=== PATIENT | female | born 2005 | race Caucasian/White ===

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

== ENCOUNTER 2023-02-12 09:06 | Emergency (ER) | payer OTHER ==
[~2023-02-12] VITALS: Ht 170.2 cm; Wt 78.0 kg
--- OUTSIDE RECORDS SUMMARY | ~2023-02-12 | XMS | Continuity of Care Document ---
Demographics + + + | Address | [facility] [address] | | | [place] [address] | + + + | Preferred Language | Unknown | + + + | Marital Status | Never | + + + | Mu-Ism Affiliation | Unknown | + + + | Race | White | + + + | Ethnic Group | Not or | + + + Author + + + | Author | [facility] | + + + | Organization | [facility] | + + + | Address | [address] [facility] | | | [place] [address] | + + + | Phone | | + + + Care Team Providers + + + + | Care Digital Computer Systems Analyst Name | Role | Phone | + + + + Unavailable | Unavailable | + + + + Unavailable | Unavailable | + + + + Unavailable | Unavailable | + + + + Allergies No information. Encounters No information. Functional Status No information. Immunizations No information. Medications + + + + | date | description | facility | + + + + | 2019-09-06 00:00 | 1 ML medroxyprogesterone | [facility] | | | acetate 150 MG/ML Injection | | | | [Depo-Provera] | | + + + + | 2019-09-06 00:00 | 1 ML medroxyprogesterone | [facility] | | | acetate 150 MG/ML Injection | | | | [Depo-Provera] | | + + + + | 2022-01-19 00:00 | 1 ml medroxyprogesterone | [facility] | | | acetate 150 mg/ml prefilled | Cardiopulmonary | | | syringe | | + + + + | 2022-01-19 00:00 | 1 ml depo-provera 150 | [facility] | | | mg/ml prefilled syringe | Cardiopulmonary | + + + + | 2019-09-06 00:00 | Multi Vitamin Oral Tablet | [facility] | | | | | + + + + | 2019-09-06 00:00 | Multi Vitamin Oral Tablet | [facility] | | | | | + + + + | 2020-12-10 00:00 | ProAir HFA 108 (90 Base) | [facility] | | | MCG/ACT Inhalation Aerosol | | | | Solution | | + + + + | 2020-12-10 00:00 | ProAir HFA 108 (90 Base) | [facility] | | | MCG/ACT Inhalation Aerosol | | | | Solution | | + + + + | 2019-11-02 00:00 | {21 (ethinyl estradiol | [facility] | | | 0.035 MG / norgestimate | | | | 0.25 MG Oral Tablet) / 7 | | | | (inert ingredients 1 MG | | | | Oral Tablet) } Pack | | | | [[place]-Linyah 28 Day] | | + + + + | 2019-11-02 00:00 | {21 (ethinyl estradiol | [facility] | | | 0.035 MG / norgestimate | | | | 0.25 MG Oral Tablet) / 7 | | | | (inert ingredients 1 MG | | | | Oral Tablet) } Pack | | | | [[place]-Liny[facility] 28 Day] | | + + + + | 2019-12-06 00:00 | {21 (ethinyl estradiol | [facility] | | | 0.035 MG / norgestimate | | | | 0.25 MG Oral Tablet) / 7 | | | | (inert ingredients 1 MG | | | | Oral Tablet) } Pack | | | | [[place]-[facility]iny[facility] 28 Day] | | + + + + | 2019-12-06 00:00 | {21 (ethinyl estradiol | [facility] | | | 0.035 MG / norgestimate | | | | 0.25 MG Oral Tablet) / 7 | | | | (inert ingredients 1 MG | | | | Oral Tablet) } Pack | | | | [[place]-[facility] 28 Day] | | + + + + | 2019-11-02 00:00 | [place]-Linyah 0.25-35 MG-MCG | [facility] | | | Oral Tablet | | + + + + | 2019-11-02 00:00 | [place]-Linyah 0.25-35 MG-MCG | [facility] | | | Oral Tablet | | + + + + | 2019-12-06 00:00 | [place]-Linyah 0.25-35 MG-MCG | [facility] | | | Oral Tablet | | + + + + | 2019-12-06 00:00 | [place]-Linyah 0.25-35 MG-MCG | [facility] | | | Oral Tablet | | + + + + | 2022-12-19 00:00 | Propranolol HCl 10 MG Oral | [facility] | | | Tablet | | + + + + | 2022-12-19 00:00 | Propranolol HCl 10 MG Oral | [facility] | | | Tablet | | + + + + | 2022-11-25 00:00 | Propranolol HCl 20 MG Oral | [facility] | | | Tablet | | + + + + | 2022-11-25 00:00 | Propranolol HCl 20 MG Oral | [facility] | | | Tablet | | + + + + | 2019-07-04 00:00 | ibuprofen 400 mg oral | [facility] | | | tablet | Cardiopulmonary | + + + + | 2020-12-10 00:00 | [id number] 200 actuat | [facility] | | | albuterol 0.09 mg/actuat | Cardiopulmonary | | | metered dose inhaler | | + + + + | 2019-11-07 00:00 | fluoxetine 20 MG Oral | [facility] | | | Tablet | | + + + + | 2019-11-07 00:00 | fluoxetine 20 MG Oral | [facility] | | | Tablet | | + + + + | 2019-11-16 00:00 | sertraline 25 MG Oral | [facility] | | | Tablet | | + + + + | 2019-11-16 00:00 | sertraline 25 MG Oral | [facility] | | | Tablet | | + + + + | 2019-11-07 00:00 | FLUoxetine HCl 20 MG Oral | [facility] | | | Tablet | | + + + + | 2019-11-07 00:00 | FLUoxetine HCl 20 MG Oral | [facility] | | | Tablet | | + + + + | 2019-11-16 00:00 | Sertraline HCl 25 MG Oral | [facility] | | | Tablet | | + + + + | 2019-11-16 00:00 | Sertraline HCl 25 MG Oral | [facility] | | | Tablet | | + + + + | 2020-09-05 00:00 | Effexor XR 37.5 MG Oral | [facility] | | | Capsule Extended Release 24 | | | | Hour | | + + + + | 2020-09-05 00:00 | Effexor XR 37.5 MG Oral | [facility] | | | Capsule Extended Release 24 | | | | Hour | | + + + + | 2021-10-23 00:00 | Effexor XR 37.5 MG Oral | [facility] | | | Capsule Extended Release 24 | | | | Hour | | + + + + | 2021-10-23 00:00 | Effexor XR 37.5 MG Oral | [facility] | | | Capsule Extended Release 24 | | | | Hour | | + + + + | 2021-12-18 00:00 | duloxetine 30 MG Delayed | [facility] | | | Release Oral Capsule | | | | [Cymbalta] | | + + + + | 2021-12-18 00:00 | duloxetine 30 MG Delayed | [facility] | | | Release Oral Capsule | | | | [Cymbalta] | | + + + + | 2022-01-20 00:00 | duloxetine 30 MG Delayed | [facility] | | | Release Oral Capsule | | | | [Cymbalta] | | + + + + | 2022-01-20 00:00 | duloxetine 30 MG Delayed | [facility] | | | Release Oral Capsule | | | | [Cymbalta] | | + + + + | 2019-09-06 00:00 | Depo-Provera 150 MG/ML | [facility] | | | Intramuscular Suspension | | + + + + | 2019-09-06 00:00 | Depo-Provera 150 MG/ML | [facility] | | | Intramuscular Suspension | | + + + + | 2020-09-05 00:00 | 24 HR venlafaxine 37.5 MG | [facility] | | | Extended Release Oral | | | | Capsule [Effexor] | | + + + + | 2020-09-05 00:00 | 24 HR venlafaxine 37.5 MG | [facility] | | | Extended Release Oral | | | | Capsule [Effexor] | | + + + + | 2021-10-23 00:00 | 24 HR venlafaxine 37.5 MG | [facility] | | | Extended Release Oral | | | | Capsule [Effexor] | | + + + + | 2021-10-23 00:00 | 24 HR venlafaxine 37.5 MG | [facility] | | | Extended Release Oral | | | | Capsule [Effexor] | | + + + + | 2020-12-10 00:00 | [id number] 200 ACTUAT | [facility] | | | albuterol 0.09 MG/ACTUAT | | | | Metered Dose Inhaler | | | | [ProAir] | | + + + + | 2020-12-10 00:00 | [id number] 200 ACTUAT | [facility] | | | albuterol 0.09 MG/ACTUAT | | | | Metered Dose Inhaler | | | | [ProAir] | | + + + + | 2019-09-06 00:00 | {21 (ethinyl estradiol | [facility] | | | 0.035 MG / norgestimate | | | | 0.25 MG Oral Tablet) / 7 | | | | (inert ingredients 1 MG | | | | Oral Tablet) } Pack | | | | [Sprintec 28 Day] | | + + + + | 2019-09-06 00:00 | {21 (ethinyl estradiol | [facility] | | | 0.035 MG / norgestimate | | | | 0.25 MG Oral Tablet) / 7 | | | | (inert ingredients 1 MG | | | | Oral Tablet) } Pack | | | | [Sprintec 28 Day] | | + + + + | 2019-10-04 00:00 | {21 (ethinyl estradiol | [facility] | | | 0.035 MG / norgestimate | | | | 0.25 MG Oral Tablet) / 7 | | | | (inert ingredients 1 MG | | | | Oral Tablet) } Pack | | | | [Sprintec 28 Day] | | + + + + | 2019-10-04 00:00 | {21 (ethinyl estradiol | [facility] | | | 0.035 MG / norgestimate | | | | 0.25 MG Oral Tablet) / 7 | | | | (inert ingredients 1 MG | | | | Oral Tablet) } Pack | | | | [Sprintec 28 Day] | | + + + + | 2019-10-05 00:00 | {21 (ethinyl estradiol | [facility] | | | 0.035 MG / norgestimate | | | | 0.25 MG Oral Tablet) / 7 | | | | (inert ingredients 1 MG | | | | Oral Tablet) } Pack | | | | [Sprintec 28 Day] | | + + + + | 2019-10-05 00:00 | {21 (ethinyl estradiol | [facility] | | | 0.035 MG / norgestimate | | | | 0.25 MG Oral Tablet) / 7 | | | | (inert ingredients 1 MG | | | | Oral Tablet) } Pack | | | | [Sprintec 28 Day] | | + + + + | 2019-09-06 00:00 | Sprintec 28 0.25-35 MG-MCG | [facility] | | | Oral Tablet | | + + + + | 2019-09-06 00:00 | Sprintec 28 0.25-35 MG-MCG | [facility] | | | Oral Tablet | | + + + + | 2019-10-04 00:00 | Sprintec 28 0.25-35 MG-MCG | [facility] | | | Oral Tablet | | + + + + | 2019-10-04 00:00 | Sprintec 28 0.25-35 MG-MCG | [facility] | | | Oral Tablet | | + + + + | 2019-10-05 00:00 | Sprintec 28 0.25-35 MG-MCG | [facility] | | | Oral Tablet | | + + + + | 2019-10-05 00:00 | Sprintec 28 0.25-35 MG-MCG | [facility] | | | Oral Tablet | | + + + + | 2022-12-19 00:00 | propranolol hydrochloride | [facility] | | | 10 MG Oral Tablet | | + + + + | 2022-12-19 00:00 | propranolol hydrochloride | [facility] | | | 10 MG Oral Tablet | | + + + + | 2022-11-25 00:00 | propranolol hydrochloride | [facility] | | | 20 MG Oral Tablet | | + + + + | 2022-11-25 00:00 | propranolol hydrochloride | [facility] | | | 20 MG Oral Tablet | | + + + + | 2021-12-18 00:00 | Cymbalta 30 MG Oral | [facility] | | | Capsule Delayed Release | | | | Particles | | + + + + | 2021-12-18 00:00 | Cymbalta 30 MG Oral | [facility] | | | Capsule Delayed Release | | | | Particles | | + + + + | 2022-01-20 00:00 | Cymbalta 30 MG Oral | [facility] | | | Capsule Delayed Release | | | | Particles | | + + + + | 2022-01-20 00:00 | Cymbalta 30 MG Oral | [facility] | | | Capsule Delayed Release | | | | Particles | | + + + + | 2019-09-06 00:00 | Calcium Oral Tablet | [facility] | | | | | + + + + | 2019-09-06 00:00 | Calcium Oral Tablet | [facility] | | | | | + + + + Problems + + + + | date | description | facility | + + + + | 2020-09-05 00:00 | Generalized anxiety | [facility] | | | disorder (disorder) | | + + + + | 2020-09-05 00:00 | Generalized anxiety | [facility] | | | disorder (disorder) | | + + + + | 2020-09-05 00:00 | Scoliosis deformity of | [facility] | | | spine (disorder) | | + + + + | 2020-09-05 00:00 | Scoliosis deformity of | [facility] | | | spine (disorder) | | + + + + | 2020-09-05 00:00 | ANXIETY GENERALIZED | [facility] | | | | | + + + + | 2020-09-05 00:00 | ANXIETY GENERALIZED | [facility]. | | | | | + + + + | 2020-09-05 00:00 | Scoliosis | [facility] | | | | | + + + + | 2020-09-05 00:00 | Scoliosis | [facility] | | | | | + + + + | 2020-09-05 00:00 | Generalized Anxiety | [facility] | | | Disorder | | + + + + | 2020-09-05 00:00 | [facility] An[facility] | [facility] | | | Disorder | | + + + + Procedures + + + + | date | description | facility | + + + + | 2022-11-25 00:00 | Controlling BP; Most | [facility]. | | | recent Systolic BP | | | | 130-139mm Hg | | + + + + | 2022-11-25 00:00 | Controlling BP; Most | [facility] | | | recent Systolic BP | | | | 130-139mm Hg | | + + + + | 2022-11-25 00:00 | Controlling BP; Most | [facility] | | | recent Diastolic BP btwn | | | | 80-89 mm Hg | | + + + + | 2022-11-25 00:00 | Controlling BP; Most | [facility] | | | recent Diastolic BP btwn | | | | 80-89 mm Hg | | + + + + | 2022-11-25 00:00 | ECG; Routine at Least 12 | [facility] | | | Leads; Interpretation & | | | | Report | | + + + + | 2022-11-25 00:00 | ECG; Routine at Least 12 | [facility] | | | Leads; Interpretation & | | | | Report | | + + + + | 2021-11-05 00:00 | CARDIAC 48 HOUR HOLTER | [facility] | | | MONITOR W SCAN | Cardiopulmonary | + + + + | 2022-11-25 00:00 | Annual Depression | [facility] | | | Screening; 15 Minutes | | + + + + | 2022-11-25 00:00 | Annual Depression | [facility] | | | Screening; 15 Minutes | | + + + + Results/Labs +--------+--------+ + +---------+--------+ + | test | date | author | facility | value | unit | | | | | | | | | interpreta | | | | | | | | tion | +--------+--------+ + +---------+--------+ + + + | Result panel 1 | + + + + + + +---------+ + + | (unknown) | (no date) | (unknown) | [facility] | (no | (units | (unknown) | | | | | [facility] | value) | unknown) | | | | | | [facility] | | | | | | | | [facility] | | | | + + + + +---------+ + + + + | Result panel 2 | + + + + + + +---------+ + + | (unknown) | (no date) | (unknown) | [facility] | (no | (units | (unknown) | | | | | [facility] | value) | unknown) | | | | | | [facility] | | | | | | | | [facility] | | | | + + + + +---------+ + + + + | Result panel 3 | + + + + + + +---------+ + + | (unknown) | (no date) | (unknown) | [facility] | (no | (units | (unknown) | | | | | [facility] | value) | unknown) | | | | | | [facility] | | | | | | | | [facility] | | | | + + + + +---------+ + + + + | Result panel 4 | + + + + + + +---------+ + + | (unknown) | (no date) | (unknown) | [facility] | (no | (units | (unknown) | | | | | [facility] | value) | unknown) | | | | | | [facility] | | | | | | | | [facility] | | | | + + + + +---------+ + + + + | Result panel 5 | + + + + + + +---------+ + + | (unknown) | (no date) | (unknown) | [facility] | (no | (units | (unknown) | | | | | [facility] | value) | unknown) | | | | | | [facility] | | | | | | | | [facility] | | | | + + + + +---------+ + + + + | Result panel 6 | + + + + + + +---------+ + + | (unknown) | (no date) | (unknown) | [facility] | (no | (units | (unknown) | | | | | [facility] | value) | unknown) | | | | | | [facility] | | | | | | | | [facility] | | | | + + + + +---------+ + + + + | Result panel 7 | + + + + + + +---------+ + + | (unknown) | (no date) | (unknown) | [facility] | (no | (units | (unknown) | | | | | [facility] | value) | unknown) | | | | | | [facility] | | | | | | | | [facility] | | | | + + + + +---------+ + + + + | Result panel 8 | + + + + + + +---------+ + + | (unknown) | (no date) | (unknown) | [facility] | (no | (units | (unknown) | | | | | [facility] | value) | unknown) | | | | | | [facility] | | | | | | | | [facility] | | | | + + + + +---------+ + + + + | Result panel 9 | + + + + + + +---------+ + + | (unknown) | (no date) | (unknown) | [facility] | (no | (units | (unknown) | | | | | [facility] | value) | unknown) | | | | | | [facility] | | | | | | | | [facility] | | | | + + + + +---------+ + + + + | Result panel 10 | + + + + + + +---------+ + + | (unknown) | (no date) | (unknown) | [facility] | (no | (units | (unknown) | | | | | [facility] | value) | unknown) | | | | | | [facility], | | | | | | | | [facility] | | | | + + + + +---------+ + + + + | Result panel 11 | + + + + + + +---------+ + + | (unknown) | (no date) | (unknown) | [facility] | (no | (units | (unknown) | | | | | [facility] | value) | unknown) | | | | | | [facility], | | | | | | | | [facility] | | | | + + + + +---------+ + + + + | Result panel 12 | + + + + + + +---------+ + + | (unknown) | (no date) | (unknown) | [facility] | (no | (units | (unknown) | | | | | [facility] | value) | unknown) | | | | | | [facility], | | | | | | | | [facility] | | | | + + + + +---------+ + + + + | Result panel 13 | + + + + + + +---------+ + + | (unknown) | (no date) | (unknown) | [facility] | (no | (units | (unknown) | | | | | [facility] | value) | unknown) | | | | | | [facility], | | | | | | | | [facility] | | | | + + + + +---------+ + + + + | Result panel 14 | + + + + + + +---------+ + + | (unknown) | (no date) | (unknown) | [facility] | (no | (units | (unknown) | | | | | [facility] | value) | unknown) | | | | | | [facility], | | | | | | | | [facility] | | | | + + + + +---------+ + + + + | Result panel 15 | + + + + + + +---------+ + + | (unknown) | (no date) | (unknown) | [facility] | (no | (units | (unknown) | | | | | [facility] | value) | unknown) | | | | | | [facility], | | | | | | | | [facility] | | | | + + + + +---------+ + + + + | Result panel 16 | + + + + + + +---------+ + + | (unknown) | (no date) | (unknown) | [facility] | (no | (units | (unknown) | | | | | [facility] | value) | unknown) | | | | | | [facility], | | | | | | | | [facility] | | | | + + + + +---------+ + + + + | Result panel 17 | + + + + + + +---------+ + + | (unknown) | (no date) | (unknown) | [facility] | (no | (units | (unknown) | | | | | [facility] | value) | unknown) | | | | | | [facility], | | | | | | | | [facility] | | | | + + + + +---------+ + + + + | Result panel 18 | + + + + + + +---------+ + + | (unknown) | (no date) | (unknown) | [facility] | (no | (units | (unknown) | | | | | [facility] | value) | unknown) | | | | | | [facility], | | | | | | | | [facility] | | | | + + + + +---------+ + + + + | Result panel 19 | + + + + + + +---------+ + + | (unknown) | (no date) | (unknown) | [facility] | (no | (units | (unknown) | | | | | [facility] | value) | unknown) | | | | | | [facility], | | | | | | | | [facility] | | | | + + + + +---------+ + + + + | Result panel 20 | + + + + + + +---------+ + + | (unknown) | (no date) | (unknown) | [facility] | (no | (units | (unknown) | | | | | [facility] | value) | unknown) | | | | | | [facility], | | | | | | | | [facility] | | | | + + + + +---------+ + + + + | Result panel 21 | + + + + + + +---------+ + + | (unknown) | (no date) | (unknown) | [facility] | (no | (units | (unknown) | | | | | [facility] | value) | unknown) | | | | | | [facility], | | | | | | | | [facility] | | | | + + + + +---------+ + + + + | Result panel 22 | + + + + + + +---------+ + + | (unknown) | (no date) | (unknown) | [facility] | (no | (units | (unknown) | | | | | [facility] | value) | unknown) | | | | | | [facility], | | | | | | | | [facility] | | | | + + + + +---------+ + + + + | Result panel 23 | + + + + + + +---------+ + + | (unknown) | (no date) | (unknown) | [facility] | (no | (units | (unknown) | | | | | [facility] | value) | unknown) | | | | | | [facility], | | | | | | | | [facility] | | | | + + + + +---------+ + + + + | Result panel 24 | + + + + + + +---------+ + + | (unknown) | (no date) | (unknown) | [facility] | (no | (units | (unknown) | | | | | [facility]ICAL | value) | unknown) | | | | | | [facility], | | | | | | | | [facility] | | | | + + + + +---------+ + + + + | Result panel 25 | + + + + + + +---------+ + + | (unknown) | (no date) | (unknown) | [facility] | (no | (units | (unknown) | | | | | [facility] | value) | unknown) | | | | | | [facility], | | | | | | | | [facility] | | | | + + + + +---------+ + + + + | Result panel 26 | + + + + + + +---------+ + + | (unknown) | (no date) | (unknown) | [facility] | (no | (units | (unknown) | | | | | [facility] | value) | unknown) | | | | | | [facility], | | | | | | | | [facility] | | | | + + + + +---------+ + + + + | Result panel 27 | + + + + + + +---------+ + + | (unknown) | (no date) | (unknown) | [facility] | (no | (units | (unknown) | | | | | [facility] | value) | unknown) | | | | | | [facility], | | | | | | | | [facility] | | | | + + + + +---------+ + + + + | Result panel 28 | + + + + + + +---------+ + + | (unknown) | (no date) | (unknown) | [facility] | (no | (units | (unknown) | | | | | MEDICAL | value) | unknown) | | | | | | [facility], | | | | | | | | [facility] | | | | + + + + +---------+ + + + + | Result panel 29 | + + + + + + +---------+ + + | (unknown) | (no date) | (unknown) | [facility] | (no | (units | (unknown) | | | | | [facility] | value) | unknown) | | | | | | [facility], | | | | | | | | [facility] | | | | + + + + +---------+ + + + + | Result panel 30 | + + + + + + +---------+ + + | (unknown) | (no date) | (unknown) | [facility] | (no | (units | (unknown) | | | | | MEDICAL | value) | unknown) | | | | | | GROUP, | | | | | | | | [facility] | | | | + + + + +---------+ + + + + | Result panel 31 | + + + + + + +---------+ + + | (unknown) | (no date) | (unknown) | [facility] | (no | (units | (unknown) | | | | | MEDICAL | value) | unknown) | | | | | | GROUP, | | | | | | | | [facility] | | | | + + + + +---------+ + + + + | Result panel 32 | + + + + + + +---------+ + + | (unknown) | (no date) | (unknown) | [facility] | (no | (units | (unknown) | | | | | MEDICAL | value) | unknown) | | | | | | GROUP, | | | | | | | | [facility] | | | | + + + + +---------+ + + + + | Result panel 33 | + + + + + + +---------+ + + | (unknown) | (no date) | (unknown) | [facility] | (no | (units | (unknown) | | | | | MEDICAL | value) | unknown) | | | | | | GROUP, | | | | | | | | [facility] | | | | + + + + +---------+ + + + + | Result panel 34 | + + + + + + +---------+ + + | (unknown) | (no date) | (unknown) | [facility] | (no | (units | (unknown) | | | | | MEDICAL | value) | unknown) | | | | | | [facility], | | | | | | | | [facility] | | | | + + + + +---------+ + + + + | Result panel 35 | + + + + + + +---------+ + + | (unknown) | (no date) | (unknown) | [facility] | (no | (units | (unknown) | | | | | MEDICAL | value) | unknown) | | | | | | [facility], | | | | | | | | [facility] | | | | + + + + +---------+ + + + + | Result panel 36 | + + + + + + +---------+ + + | (unknown) | (no date) | (unknown) | [facility] | (no | (units | (unknown) | | | | | MEDICAL | value) | unknown) | | | | | | GROUP, | | | | | | | | [facility] | | | | + + + + +---------+ + + + + | Result panel 37 | + + + + + + +---------+ + + | (unknown) | (no date) | (unknown) | [facility] | (no | (units | (unknown) | | | | | MEDICAL | value) | unknown) | | | | | | [facility], | | | | | | | | [facility] | | | | + + + + +---------+ + + + + | Result panel 38 | + + + + + + +---------+ + + | (unknown) | (no date) | (unknown) | [facility] | (no | (units | (unknown) | | | | | MEDICAL | value) | unknown) | | | | | | [facility], | | | | | | | | [facility] | | | | + + + + +---------+ + + + + | Result panel 39 | + + + + + + +---------+ + + | (unknown) | (no date) | (unknown) | [facility] | (no | (units | (unknown) | | | | | MEDICAL | value) | unknown) | | | | | | [facility], | | | | | | | | [facility] | | | | + + + + +---------+ + + + + | Result panel 40 | + + + + + + +---------+ + + | (unknown) | (no date) | (unknown) | [facility] | (no | (units | (unknown) | | | | | MEDICAL | value) | unknown) | | | | | | GROUP, | | | | | | | | [facility] | | | | + + + + +---------+ + + + + | Result panel 41 | + + + + + + +---------+ + + | (unknown) | (no date) | (unknown) | [facility] | (no | (units | (unknown) | | | | | MEDICAL | value) | unknown) | | | | | | GROUP, | | | | | | | | [facility] | | | | + + + + +---------+ + + + + | Result panel 42 | + + + + + + +---------+ + + | (unknown) | (no date) | (unknown) | [facility] | (no | (units | (unknown) | | | | | MEDICAL | value) | unknown) | | | | | | GROUP, | | | | | | | | [facility] | | | | + + + + +---------+ + + + + | Result panel 43 | + + + + + + +---------+ + + | (unknown) | (no date) | (unknown) | [facility] | (no | (units | (unknown) | | | | | MEDICAL | value) | unknown) | | | | | | GROUP, | | | | | | | | [facility] | | | | + + + + +---------+ + + + + | Result panel 44 | + + + + + + +---------+ + + | (unknown) | (no date) | (unknown) | [facility] | (no | (units | (unknown) | | | | | MEDICAL | value) | unknown) | | | | | | GROUP, | | | | | | | | [facility] | | | | + + + + +---------+ + + + + | Result panel 45 | + + + + + + +---------+ + + | (unknown) | (no date) | (unknown) | [facility] | (no | (units | (unknown) | | | | | MEDICAL | value) | unknown) | | | | | | [facility], | | | | | | | | [facility] | | | | + + + + +---------+ + + + + | Result panel 46 | + + + + + + +---------+ + + | (unknown) | (no date) | (unknown) | [facility] | (no | (units | (unknown) | | | | | MEDICAL | value) | unknown) | | | | | | [facility] | | | | [facility] | | | | + + + + +---------+ + + + + | Result panel 47 | + + + + + + +---------+ + + | (unknown) | (no date) | (unknown) | [facility] | (no | (units | (unknown) | | | | | MED[facility] | value) | unknown) | | | | | | [facility] | | | | | | | | [facility] | | | | + + + + +---------+ + + + + | Result panel 48 | + + + + + + +---------+ + + | (unknown) | (no date) | (unknown) | [facility] | (no | (units | (unknown) | | | | | [facility] | value) | unknown) | | | | | | [facility] | | | | | | | | [facility] | | | | + + + + +---------+ + + + + | Result panel 49 | + + + + + + +---------+ + + | (unknown) | (no date) | (unknown) | [facility] | (no | (units | (unknown) | | | | | [facility] | value) | unknown) | | | | | | [facility] | | | | | | | | [facility] | | | | + + + + +---------+ + + + + | Result panel 50 | + + + + + + +---------+ + + | (unknown) | (no date) | (unknown) | [facility] | (no | (units | (unknown) | | | | | [facility] | value) | unknown) | | | | | | [facility] | | | | | | | | [facility] | | | | + + + + +---------+ + + + + | Result panel 51 | + + + + + + +---------+ + + | (unknown) | (no date) | (unknown) | [facility] | (no | (units | (unknown) | | | | | [facility] | value) | unknown) | | | | | | [facility] | | | | | | | | [facility] | | | | + + + + +---------+ + + + + | Result panel 52 | + + + + + + +---------+ + + | (unknown) | (no date) | (unknown) | [facility] | (no | (units | (unknown) | | | | | [facility] | value) | unknown) | | | | | | [facility] | | | | | | | | [facility] | | | | + + + + +---------+ + + + + | Result panel 53 | + + + + + + +---------+ + + | (unknown) | (no date) | (unknown) | [facility] | (no | (units | (unknown) | | | | | [facility] | value) | unknown) | | | | | | [facility], | | | | | | | | [facility] | | | | + + + + +---------+ + + + + | Result panel 54 | + + + + + + +---------+ + + | (unknown) | (no date) | (unknown) | [facility] | (no | (units | (unknown) | | | | | [facility] | value) | unknown) | | | | | | [facility], | | | | | | | | [facility] | | | | + + + + +---------+ + + + + | Result panel 55 | + + + + + + +---------+ + + | (unknown) | (no date) | (unknown) | [facility] | (no | (units | (unknown) | | | | | [facility] | value) | unknown) | | | | | | [facility], | | | | | | | | [facility] | | | | + + + + +---------+ + + + + | Result panel 56 | + + + + + + +---------+ + + | (unknown) | (no date) | (unknown) | [facility] | (no | (units | (unknown) | | | | | [facility] | value) | unknown) | | | | | | [facility], | | | | | | | | [facility] | | | | + + + + +---------+ + + + + | Result panel 57 | + + + + + + +---------+ + + | (unknown) | (no date) | (unknown) | [facility] | (no | (units | (unknown) | | | | | [facility] | value) | unknown) | | | | | | [facility], | | | | | | | | [facility] | | | | + + + + +---------+ + + + + | Result panel 58 | + + + + + + +---------+ + + | (unknown) | (no date) | (unknown) | [facility] | (no | (units | (unknown) | | | | | [facility] | value) | unknown) | | | | | | [facility], | | | | | | | | [facility] | | | | + + + + +---------+ + + + + | Result panel 59 | + + + + + + +---------+ + + | (unknown) | (no date) | (unknown) | [facility] | (no | (units | (unknown) | | | | | [facility] | value) | unknown) | | | | | | [facility], | | | | | | | | [facility] | | | | + + + + +---------+ + + + + | Result panel 60 | + + + + + + +---------+ + + | (unknown) | (no date) | (unknown) | [facility] | (no | (units | (unknown) | | | | | [facility] | value) | unknown) | | | | | | [facility], | | | | | | | | [facility] | | | | + + + + +---------+ + + + + | Result panel 61 | + + + + + + +---------+ + + | (unknown) | (no date) | (unknown) | [facility] | (no | (units | (unknown) | | | | | [facility] | value) | unknown) | | | | | | [facility], | | | | | | | | [facility] | | | | + + + + +---------+ + + + + | Result panel 62 | + + + + + + +---------+ + + | (unknown) | (no date) | (unknown) | [facility] | (no | (units | (unknown) | | | | | [facility] | value) | unknown) | | | | | | [facility], | | | | | | | | [facility] | | | | + + + + +---------+ + + + + | Result panel 63 | + + + + + + +---------+ + + | (unknown) | (no date) | (unknown) | [facility] | (no | (units | (unknown) | | | | | [facility] | value) | unknown) | | | | | | [facility], | | | | | | | | [facility] | | | | + + + + +---------+ + + + + | Result panel 64 | + + + + + + +---------+ + + | (unknown) | (no date) | (unknown) | [facility] | (no | (units | (unknown) | | | | | [facility] | value) | unknown) | | | | | | [facility], | | | | | | | | [facility] | | | | + + + + +---------+ + + + + | Result panel 65 | + + + + + + +---------+ + + | (unknown) | (no date) | (unknown) | [facility] | (no | (units | (unknown) | | | | | [facility] | value) | unknown) | | | | | | [facility], | | | | | | | | [facility] | | | | + + + + +---------+ + + + + | Result panel 66 | + + + + + + +---------+ + + | (unknown) | (no date) | (unknown) | [facility] | (no | (units | (unknown) | | | | | [facility] | value) | unknown) | | | | | | [facility], | | | | | | | | [facility] | | | | + + + + +---------+ + + + + | Result panel 67 | + + + + + + +---------+ + + | (unknown) | (no date) | (unknown) | [facility] | (no | (units | (unknown) | | | | | [facility] | value) | unknown) | | | | | | [facility] | | | | | | | | [facility] | | | | + + + + +---------+ + + + + | Result panel 68 | + + + + + + +---------+ + + | (unknown) | (no date) | (unknown) | [facility] | (no | (units | (unknown) | | | | | [facility] | value) | unknown) | | | | | | [facility], | | | | | | | | [facility] | | | | + + + + +---------+ + + + + | Result panel 69 | + + + + + + +---------+ + + | (unknown) | (no date) | (unknown) | [facility] | (no | (units | (unknown) | | | | | [facility] | value) | unknown) | | | | | | [facility], | | | | | | | | [facility] | | | | + + + + +---------+ + + + + | Result panel 70 | + + + + + + +---------+ + + | (unknown) | (no date) | (unknown) | [facility] | (no | (units | (unknown) | | | | | [facility] | value) | unknown) | | | | | | [facility], | | | | | | | | [facility] | | | | + + + + +---------+ + + + + | Result panel 71 | + + + + + + +---------+ + + | (unknown) | (no date) | (unknown) | [facility] | (no | (units | (unknown) | | | | | [facility] | value) | unknown) | | | | | | [facility], | | | | | | | | [facility] | | | | + + + + +---------+ + + + + | Result panel 72 | + + + + + + +---------+ + + | (unknown) | (no date) | (unknown) | [facility] | (no | (units | (unknown) | | | | | [facility] | value) | unknown) | | | | | | [facility], | | | | | | | | [facility] | | | | + + + + +---------+ + + + + | Result panel 73 | + + + + + + +---------+ + + | (unknown) | (no date) | (unknown) | [facility] | (no | (units | (unknown) | | | | | [facility] | value) | unknown) | | | | | | [facility], | | | | | | | | [facility] | | | | + + + + +---------+ + + + + | Result panel 74 | + + + + + + +---------+ + + | (unknown) | (no date) | (unknown) | [facility] | (no | (units | (unknown) | | | | | [facility] | value) | unknown) | | | | | | [facility], | | | | | | | | [facility] | | | | + + + + +---------+ + + + + | Result panel 75 | + + + + + + +---------+ + + | (unknown) | (no date) | (unknown) | [facility] | (no | (units | (unknown) | | | | | [facility] | value) | unknown) | | | | | | [facility], | | | | | | | | [facility] | | | | + + + + +---------+ + + + + | Result panel 76 | + + + + + + +---------+ + + | (unknown) | (no date) | (unknown) | [facility] | (no | (units | (unknown) | | | | | [facility] | value) | unknown) | | | | | | [facility], | | | | | | | | [facility] | | | | + + + + +---------+ + + + + | Result panel 77 | + + + + + + +---------+ + + | (unknown) | (no date) | (unknown) | [facility] | (no | (units | (unknown) | | | | | [facility] | value) | unknown) | | | | | | [facility], | | | | | | | | [facility] | | | | + + + + +---------+ + + + + | Result panel 78 | + + + + + + +---------+ + + | (unknown) | (no date) | (unknown) | [facility] | (no | (units | (unknown) | | | | | [facility] | value) | unknown) | | | | | | [facility], | | | | | | | | [facility] | | | | + + + + +---------+ + + + + | Result panel 79 | + + + + + + +---------+ + + | (unknown) | (no date) | (unknown) | [facility] | (no | (units | (unknown) | | | | | [facility] | value) | unknown) | | | | | | [facility], | | | | | | | | [facility] | | | | + + + + +---------+ + + + + | Result panel 80 | + + + + + + +---------+ + + | (unknown) | (no date) | (unknown) | [facility] | (no | (units | (unknown) | | | | | [facility] | value) | unknown) | | | | | | [facility], | | | | | | | | [facility] | | | | + + + + +---------+ + + + + | Result panel 81 | + + + + + + +---------+ + + | (unknown) | (no date) | (unknown) | [facility] | (no | (units | (unknown) | | | | | [facility] | value) | unknown) | | | | | | [facility], | | | | | | | | [facility] | | | | + + + + +---------+ + + + + | Result panel 82 | + + + + + + +---------+ + + | (unknown) | (no date) | (unknown) | [facility] | (no | (units | (unknown) | | | | | [facility] | value) | unknown) | | | | | | [facility], | | | | | | | | [facility] | | | | + + + + +---------+ + + + + | Result panel 83 | + + + + + + +---------+ + + | (unknown) | (no date) | (unknown) | [facility] | (no | (units | (unknown) | | | | | [facility] | value) | unknown) | | | | | | [facility], | | | | | | | | [facility] | | | | + + + + +---------+ + + + + | Result panel 84 | + + + + + + +---------+ + + | (unknown) | (no date) | (unknown) | [facility] | (no | (units | (unknown) | | | | | [facility] | value) | unknown) | | | | | | [facility], | | | | | | | | [facility] | | | | + + + + +---------+ + + + + | Result panel 85 | + + + + + + +---------+ + + | (unknown) | (no date) | (unknown) | [facility] | (no | (units | (unknown) | | | | | [facility] | value) | unknown) | | | | | | [facility], | | | | | | | | [facility] | | | | + + + + +---------+ + + + + | Result panel 86 | + + + + + + +---------+ + + | (unknown) | (no date) | (unknown) | [facility] | (no | (units | (unknown) | | | | | [facility] | value) | unknown) | | | | | | [facility], | | | | | | | | [facility] | | | | + + + + +---------+ + + + + | Result panel 87 | + + + + + + +---------+ + + | (unknown) | (no date) | (unknown) | [facility] | (no | (units | (unknown) | | | | | [facility] | value) | unknown) | | | | | | [facility], | | | | | | | | [facility] | | | | + + + + +---------+ + + + + | Result panel 88 | + + + + + + +---------+ + + | (unknown) | (no date) | (unknown) | [facility] | (no | (units | (unknown) | | | | | [facility] | value) | unknown) | | | | | | [facility], | | | | | | | | [facility] | | | | + + + + +---------+ + + + + | Result panel 89 | + + + + + + +---------+ + + | (unknown) | (no date) | (unknown) | [facility] | (no | (units | (unknown) | | | | | [facility] | value) | unknown) | | | | | | [facility], | | | | | | | | [facility] | | | | + + + + +---------+ + + + + | Result panel 90 | + + + + + + +---------+ + + | (unknown) | (no date) | (unknown) | [facility] | (no | (units | (unknown) | | | | | [facility] | value) | unknown) | | | | | | [facility], | | | | | | | | [facility] | | | | + + + + +---------+ + + + + | Result panel 91 | + + + + + + +---------+ + + | (unknown) | (no date) | (unknown) | [facility] | (no | (units | (unknown) | | | | | [facility] | value) | unknown) | | | | | | [facility], | | | | | | | | [facility] | | | | + + + + +---------+ + + + + | Result panel 92 | + + + + + + +---------+ + + | (unknown) | (no date) | (unknown) | [facility] | (no | (units | (unknown) | | | | | [facility] | value) | unknown) | | | | | | [facility], | | | | | | | | [facility] | | | | + + + + +---------+ + + + + | Result panel 93 | + + + + + + +---------+ + + | (unknown) | (no date) | (unknown) | [facility] | (no | (units | (unknown) | | | | | [facility] | value) | unknown) | | | | | | [facility], | | | | | | | | [facility] | | | | + + + + +---------+ + + + + | Result panel 94 | + + + + + + +---------+ + + | (unknown) | (no date) | (unknown) | [facility] | (no | (units | (unknown) | | | | | [facility] | value) | unknown) | | | | | | [facility], | | | | | | | | [facility] | | | | + + + + +---------+ + + + + | Result panel 95 | + + + + + + +---------+ + + | (unknown) | (no date) | (unknown) | [facility] | (no | (units | (unknown) | | | | | [facility] | value) | unknown) | | | | | | [facility], | | | | | | | | [facility] | | | | + + + + +---------+ + + + + | Result panel 96 | + + + + + + +---------+ + + | (unknown) | (no date) | (unknown) | [facility] | (no | (units | (unknown) | | | | | [facility] | value) | unknown) | | | | | | [facility], | | | | | | | | [facility] | | | | + + + + +---------+ + + + + | Result panel 97 | + + + + + + +---------+ + + | (unknown) | (no date) | (unknown) | [facility] | (no | (units | (unknown) | | | | | [facility] | value) | unknown) | | | | | | [facility], | | | | | | | | [facility] | | | | + + + + +---------+ + + + + | Result panel 98 | + + + + + + +---------+ + + | (unknown) | (no date) | (unknown) | [facility] | (no | (units | (unknown) | | | | | [facility] | value) | unknown) | | | | | | [facility], | | | | | | | | [facility] | | | | + + + + +---------+ + + + + | Result panel 99 | + + + + + + +---------+ + + | (unknown) | (no date) | (unknown) | [facility] | (no | (units | (unknown) | | | | | [facility] | value) | unknown) | | | | | | [facility], | | | | | | | | [facility] | | | | + + + + +---------+ + + + + | Result panel 100 | + + + + + + +---------+ + + | (unknown) | (no date) | (unknown) | [facility] | (no | (units | (unknown) | | | | | [facility] | value) | unknown) | | | | | | [facility], | | | | | | | | [facility] | | | | + + + + +---------+ + + + + | Result panel 101 | + + + + + + +---------+ + + | (unknown) | (no date) | (unknown) | [facility] | (no | (units | (unknown) | | | | | [facility] | value) | unknown) | | | | | | [facility], | | | | | | | | [facility] | | | | + + + + +---------+ + + + + | Result panel 102 | + + + + + + +---------+ + + | (unknown) | (no date) | (unknown) | [facility] | (no | (units | (unknown) | | | | | [facility] | value) | unknown) | | | | | | [facility], | | | | | | | | [facility] | | | | + + + + +---------+ + + + + | Result panel 103 | + + + + + + +---------+ + + | (unknown) | (no date) | (unknown) | [facility] | (no | (units | (unknown) | | | | | [facility] | value) | unknown) | | | | | | [facility], | | | | | | | | [facility] | | | | + + + + +---------+ + + + + | Result panel 104 | + + + + + + +---------+ + + | (unknown) | (no date) | (unknown) | [facility] | (no | (units | (unknown) | | | | | [facility] | value) | unknown) | | | | | | [facility], | | | | | | | | [facility] | | | | + + + + +---------+ + + + + | Result panel 105 | + + + + + + +---------+ + + | (unknown) | (no date) | (unknown) | [facility] | (no | (units | (unknown) | | | | | [facility] | value) | unknown) | | | | | | [facility], | | | | | | | | [facility] | | | | + + + + +---------+ + + + + | Result panel 106 | + + + + + + +---------+ + + | (unknown) | (no date) | (unknown) | [facility] | (no | (units | (unknown) | | | | | [facility] | value) | unknown) | | | | | | [facility], | | | | | | | | [facility] | | | | + + + + +---------+ + + + + | Result panel 107 | + + + + + + +---------+ + + | (unknown) | (no date) | (unknown) | [facility] | (no | (units | (unknown) | | | | | [facility] | value) | unknown) | | | | | | [facility], | | | | | | | | [facility] | | | | + + + + +---------+ + + + + | Result panel 108 | + + + + + + +---------+ + + | (unknown) | (no date) | (unknown) | [facility] | (no | (units | (unknown) | | | | | [facility] | value) | unknown) | | | | | | [facility], | | | | | | | | [facility] | | | | + + + + +---------+ + + + + | Result panel 109 | + + + + + + +---------+ + + | (unknown) | (no date) | (unknown) | [facility] | (no | (units | (unknown) | | | | | [facility] | value) | unknown) | | | | | | [facility], | | | | | | | | [facility] | | | | + + + + +---------+ + + + + | Result panel 110 | + + + + + + +---------+ + + | (unknown) | (no date) | (unknown) | [facility] | (no | (units | (unknown) | | | | | [facility] | value) | unknown) | | | | | | [facility], | | | | | | | | [facility] | | | | + + + + +---------+ + + + + | Result panel 111 | + + + + + + +---------+ + + | (unknown) | (no date) | (unknown) | [facility] | (no | (units | (unknown) | | | | | [facility] | value) | unknown) | | | | | | [facility], | | | | | | | | [facility] | | | | + + + + +---------+ + + + + | Result panel 112 | + + + + + + +---------+ + + | (unknown) | (no date) | (unknown) | [facility] | (no | (units | (unknown) | | | | | [facility] | value) | unknown) | | | | | | [facility], | | | | | | | | [facility] | | | | + + + + +---------+ + + + + | Result panel 113 | + + + + + + +---------+ + + | (unknown) | (no date) | (unknown) | [facility] | (no | (units | (unknown) | | | | | [facility] | value) | unknown) | | | | | | [facility], | | | | | | | | [facility] | | | | + + + + +---------+ + + + + | Result panel 114 | + + + + + + +---------+ + + | (unknown) | (no date) | (unknown) | [facility] | (no | (units | (unknown) | | | | | [facility] | value) | unknown) | | | | | | [facility], | | | | | | | | [facility] | | | | + + + + +---------+ + + + + | Result panel 115 | + + + + + + +---------+ + + | (unknown) | (no date) | (unknown) | [facility] | (no | (units | (unknown) | | | | | [facility] | value) | unknown) | | | | | | [facility], | | | | | | | | [facility] | | | | + + + + +---------+ + + + + | Result panel 116 | + + + + + + +---------+ + + | (unknown) | (no date) | (unknown) | [facility] | (no | (units | (unknown) | | | | | [facility] | value) | unknown) | | | | | | [facility], | | | | | | | | [facility] | | | | + + + + +---------+ + + + + | Result panel 117 | + + + + + + +---------+ + + | (unknown) | (no date) | (unknown) | [facility] | (no | (units | (unknown) | | | | | [facility] | value) | unknown) | | | | | | [facility], | | | | | | | | [facility] | | | | + + + + +---------+ + + + + | Result panel 118 | + + + + + + +---------+ + + | (unknown) | (no date) | (unknown) | [facility] | (no | (units | (unknown) | | | | | [facility] | value) | unknown) | | | | | | Cardiopulm | | | | | | | | onary | | | | + + + + +---------+ + + + + | Result panel 119 | + + + + + + +---------+ + + | (unknown) | (no date) | (unknown) | [facility] | (no | (units | (unknown) | | | | | [facility] | value) | unknown) | | | | | | Cardiopulm | | | | | | | | onary | | | | + + + + +---------+ + + + + | Result panel 120 | + + + + + + +---------+ + + | (unknown) | (no date) | (unknown) | [facility] | (no | (units | (unknown) | | | | | [facility] | value) | unknown) | | | | | | [facility], | | | | | | | | [facility] | | | | + + + + +---------+ + + + + | Result panel 121 | + + + + + + +---------+ + + | (unknown) | (no date) | (unknown) | [facility] | (no | (units | (unknown) | | | | | [facility] | value) | unknown) | | | | | | [facility], | | | | | | | | [facility] | | | | + + + + +---------+ + + + + | Result panel 122 | + + + + + + +---------+ + + | (unknown) | (no date) | (unknown) | [facility] | (no | (units | (unknown) | | | | | [facility] | value) | unknown) | | | | | | [facility], | | | | | | | | [facility] | | | | + + + + +---------+ + + + + | Result panel 123 | + + + + + + +---------+ + + | (unknown) | (no date) | (unknown) | [facility] | (no | (units | (unknown) | | | | | [facility] | value) | unknown) | | | | | | [facility], | | | | | | | | [facility] | | | | + + + + +---------+ + + + + | Result panel 124 | + + + + + + +---------+ + + | (unknown) | (no date) | (unknown) | [facility] | (no | (units | (unknown) | | | | | [facility] | value) | unknown) | | | | | | [facility], | | | | | | | | [facility] | | | | + + + + +---------+ + + + + | Result panel 125 | + + + + + + +---------+ + + | (unknown) | (no date) | (unknown) | [facility] | (no | (units | (unknown) | | | | | [facility] | value) | unknown) | | | | | | [facility], | | | | | | | | [facility] | | | | + + + + +---------+ + + + + | Result panel 126 | + + + + + + +---------+ + + | (unknown) | (no date) | (unknown) | [facility] | (no | (units | (unknown) | | | | | [facility] | value) | unknown) | | | | | | [facility], | | | | | | | | [facility] | | | | + + + + +---------+ + + + + | Result panel 127 | + + + + + + +---------+ + + | (unknown) | (no date) | (unknown) | [facility] | (no | (units | (unknown) | | | | | [facility] | value) | unknown) | | | | | | [facility], | | | | | | | | [facility] | | | | + + + + +---------+ + + + + | Result panel 128 | + + + + + + +---------+ + + | (unknown) | (no date) | (unknown) | [facility] | (no | (units | (unknown) | | | | | [facility] | value) | unknown) | | | | | | [facility], | | | | | | | | [facility] | | | | + + + + +---------+ + + + + | Result panel 129 | + + + + + + +---------+ + + | (unknown) | (no date) | (unknown) | [facility] | (no | (units | (unknown) | | | | | [facility] | value) | unknown) | | | | | | [facility], | | | | | | | | [facility] | | | | + + + + +---------+ + + + + | Result panel 130 | + + + + + + +---------+ + + | (unknown) | (no date) | (unknown) | [facility] | (no | (units | (unknown) | | | | | [facility] | value) | unknown) | | | | | | [facility], | | | | | | | | [facility] | | | | + + + + +---------+ + + + + | Result panel 131 | + + + + + + +---------+ + + | (unknown) | (no date) | (unknown) | [facility] | (no | (units | (unknown) | | | | | [facility] | value) | unknown) | | | | | | [facility], | | | | | | | | [facility] | | | | + + + + +---------+ + + + + | Result panel 132 | + + + + + + +---------+ + + | (unknown) | (no date) | (unknown) | [facility] | (no | (units | (unknown) | | | | | [facility] | value) | unknown) | | | | | | [facility], | | | | | | | | [facility] | | | | + + + + +---------+ + + + + | Result panel 133 | + + + + + + +---------+ + + | (unknown) | (no date) | (unknown) | [facility] | (no | (units | (unknown) | | | | | [facility] | value) | unknown) | | | | | | [facility], | | | | | | | | [facility] | | | | + + + + +---------+ + + + + | Result panel 134 | + + + + + + +---------+ + + | (unknown) | (no date) | (unknown) | [facility] | (no | (units | (unknown) | | | | | [facility] | value) | unknown) | | | | | | [facility], | | | | | | | | [facility] | | | | + + + + +---------+ + + + + | Result panel 135 | + + + + + + +---------+ + + | (unknown) | (no date) | (unknown) | [facility] | (no | (units | (unknown) | | | | | MEDICAL | value) | unknown) | | | | | | GROUP, | | | | | | | | [facility] | | | | + + + + +---------+ + + + + | Result panel 136 | + + + + + + +---------+ + + | (unknown) | (no date) | (unknown) | [facility] | (no | (units | (unknown) | | | | | MEDICAL | value) | unknown) | | | | | | GROUP, | | | | | | | | [facility] | | | | + + + + +---------+ + + + + | Result panel 137 | + + + + + + +---------+ + + | (unknown) | (no date) | (unknown) | [facility] | (no | (units | (unknown) | | | | | MEDICAL | value) | unknown) | | | | | | GROUP, | | | | | | | | [facility] | | | | + + + + +---------+ + + + + | Result panel 138 | + + + + + + +---------+ + + | (unknown) | (no date) | (unknown) | [facility] | (no | (units | (unknown) | | | | | MEDICAL | value) | unknown) | | | | | | GROUP, | | | | | | | | [facility] | | | | + + + + +---------+ + + + + | Result panel 139 | + + + + + + +---------+ + + | (unknown) | (no date) | (unknown) | [facility] | (no | (units | (unknown) | | | | | MEDICAL | value) | unknown) | | | | | | GROUP, | | | | | | | | [facility] | | | | + + + + +---------+ + + + + | Result panel 140 | + + + + + + +---------+ + + | (unknown) | (no date) | (unknown) | [facility] | (no | (units | (unknown) | | | | | MEDICAL | value) | unknown) | | | | | | GROUP, | | | | | | | | [facility] | | | | + + + + +---------+ + + + + | Result panel 141 | + + + + + + +---------+ + + | (unknown) | (no date) | (unknown) | [facility] | (no | (units | (unknown) | | | | | MEDICAL | value) | unknown) | | | | | | GROUP, | | | | | | | | [facility] | | | | + + + + +---------+ + + + + | Result panel 142 | + + + + + + +---------+ + + | (unknown) | (no date) | (unknown) | [facility] | (no | (units | (unknown) | | | | | MEDICAL | value) | unknown) | | | | | | [facility], | | | | | | | | [facility] | | | | + + + + +---------+ + + + + | Result panel 143 | + + + + + + +---------+ + + | (unknown) | (no date) | (unknown) | [facility] | (no | (units | (unknown) | | | | | MEDICAL | value) | unknown) | | | | | | GROUP, | | | | | | | | [facility] | | | | + + + + +---------+ + + + + | Result panel 144 | + + + + + + +---------+ + + | (unknown) | (no date) | (unknown) | [facility] | (no | (units | (unknown) | | | | | MEDICAL | value) | unknown) | | | | | | GROUP, | | | | | | | | [facility] | | | | + + + + +---------+ + + + + | Result panel 145 | + + + + + + +---------+ + + | (unknown) | (no date) | (unknown) | [facility] | (no | (units | (unknown) | | | | | MEDICAL | value) | unknown) | | | | | | GROUP, | | | | | | | | [facility] | | | | + + + + +---------+ + + + + | Result panel 146 | + + + + + + +---------+ + + | (unknown) | (no date) | (unknown) | [facility] | (no | (units | (unknown) | | | | | MEDICAL | value) | unknown) | | | | | | GROUP, | | | | | | | | [facility] | | | | + + + + +---------+ + + + + | Result panel 147 | + + + + + + +---------+ + + | (unknown) | (no date) | (unknown) | [facility] | (no | (units | (unknown) | | | | | MEDICAL | value) | unknown) | | | | | | GROUP, | | | | | | | | [facility] | | | | + + + + +---------+ + + + + | Result panel 148 | + + + + + + +---------+ + + | (unknown) | (no date) | (unknown) | [facility] | (no | (units | (unknown) | | | | | MEDICAL | value) | unknown) | | | | | | [facility], | | | | | | | | [facility] | | | | + + + + +---------+ + + + + | Result panel 149 | + + + + + + +---------+ + + | (unknown) | (no date) | (unknown) | [facility] | (no | (units | (unknown) | | | | | MEDICAL | value) | unknown) | | | | | | [facility], | | | | | | | | [facility] | | | | + + + + +---------+ + + + + | Result panel 150 | + + + + + + +---------+ + + | (unknown) | (no date) | (unknown) | [facility] | (no | (units | (unknown) | | | | | MEDICAL | value) | unknown) | | | | | | [facility], | | | | | | | | [facility] | | | | + + + + +---------+ + + + + | Result panel 151 | + + + + + + +---------+ + + | (unknown) | (no date) | (unknown) | [facility] | (no | (units | (unknown) | | | | | MEDICAL | value) | unknown) | | | | | | [facility], | | | | | | | | [facility] | | | | + + + + +---------+ + + + + | Result panel 152 | + + + + + + +---------+ + + | (unknown) | (no date) | (unknown) | [facility] | (no | (units | (unknown) | | | | | MEDICAL | value) | unknown) | | | | | | [facility], | | | | | | | | [facility] | | | | + + + + +---------+ + + + + | Result panel 153 | + + + + + + +---------+ + + | (unknown) | (no date) | (unknown) | [facility] | (no | (units | (unknown) | | | | | MEDICAL | value) | unknown) | | | | | | [facility] | | | | | | | | [facility] | | | | + + + + +---------+ + + + + | Result panel 154 | + + + + + + +---------+ + + | (unknown) | (no date) | (unknown) | [facility] | (no | (units | (unknown) | | | | | MEDICAL | value) | unknown) | | | | | | [facility], | | | | | | | | [facility] | | | | + + + + +---------+ + + + + | Result panel 155 | + + + + + + +---------+ + + | (unknown) | (no date) | (unknown) | [facility] | (no | (units | (unknown) | | | | | MEDICAL | value) | unknown) | | | | | | [facility], | | | | | | | | [facility] | | | | + + + + +---------+ + + + + | Result panel 156 | + + + + + + +---------+ + + | (unknown) | (no date) | (unknown) | [facility] | (no | (units | (unknown) | | | | | MEDICAL | value) | unknown) | | | | | | [facility], | | | | | | | | [facility] | | | | + + + + +---------+ + + + + | Result panel 157 | + + + + + + +---------+ + + | (unknown) | (no date) | (unknown) | [facility] | (no | (units | (unknown) | | | | | MEDICAL | value) | unknown) | | | | | | [facility] | | | | | | | | [facility] | | | | + + + + +---------+ + + + + | Result panel 158 | + + + + + + +---------+ + + | (unknown) | (no date) | (unknown) | [facility] | (no | (units | (unknown) | | | | | MEDICAL | value) | unknown) | | | | | | [facility], | | | | | | | | [facility] | | | | + + + + +---------+ + + + + | Result panel 159 | + + + + + + +---------+ + + | (unknown) | (no date) | (unknown) | [facility] | (no | (units | (unknown) | | | | | MEDICAL | value) | unknown) | | | | | | [facility], | | | | | | | | [facility] | | | | + + + + +---------+ + + + + | Result panel 160 | + + + + + + +---------+ + + | (unknown) | (no date) | (unknown) | [facility] | (no | (units | (unknown) | | | | | MEDICAL | value) | unknown) | | | | | | [facility], | | | | | | | | [facility] | | | | + + + + +---------+ + + + + | Result panel 161 | + + + + + + +---------+ + + | (unknown) | (no date) | (unknown) | [facility] | (no | (units | (unknown) | | | | | MEDICAL | value) | unknown) | | | | | | [facility], | | | | | | | | [facility] | | | | + + + + +---------+ + + + + | Result panel 162 | + + + + + + +---------+ + + | (unknown) | (no date) | (unknown) | [facility] | (no | (units | (unknown) | | | | | MEDICAL | value) | unknown) | | | | | | [facility], | | | | | | | | [facility] | | | | + + + + +---------+ + + + + | Result panel 163 | + + + + + + +---------+ + + | (unknown) | (no date) | (unknown) | [facility] | (no | (units | (unknown) | | | | | MEDICAL | value) | unknown) | | | | | | [facility], | | | | | | | | [facility] | | | | + + + + +---------+ + + + + | Result panel 164 | + + + + + + +---------+ + + | (unknown) | (no date) | (unknown) | [facility] | (no | (units | (unknown) | | | | | MEDICAL | value) | unknown) | | | | | | [facility], | | | | | | | | [facility] | | | | + + + + +---------+ + + + + | Result panel 165 | + + + + + + +---------+ + + | (unknown) | (no date) | (unknown) | [facility] | (no | (units | (unknown) | | | | | MEDICAL | value) | unknown) | | | | | | [facility], | | | | | | | | [facility] | | | | + + + + +---------+ + + + + | Result panel 166 | + + + + + + +---------+ + + | (unknown) | (no date) | (unknown) | [facility] | (no | (units | (unknown) | | | | | MEDICAL | value) | unknown) | | | | | | [facility], | | | | | | | | [facility] | | | | + + + + +---------+ + + + + | Result panel 167 | + + + + + + +---------+ + + | (unknown) | (no date) | (unknown) | [facility] | (no | (units | (unknown) | | | | | MEDICAL | value) | unknown) | | | | | | [facility], | | | | | | | | [facility] | | | | + + + + +---------+ + + + + | Result panel 168 | + + + + + + +---------+ + + | (unknown) | (no date) | (unknown) | [facility] | (no | (units | (unknown) | | | | | MEDICAL | value) | unknown) | | | | | | [facility], | | | | | | | | [facility] | | | | + + + + +---------+ + + + + | Result panel 169 | + + + + + + +---------+ + + | (unknown) | (no date) | (unknown) | [facility] | (no | (units | (unknown) | | | | | MEDICAL | value) | unknown) | | | | | | [facility], | | | | | | | | [facility] | | | | + + + + +---------+ + + + + | Result panel 170 | + + + + + + +---------+ + + | (unknown) | (no date) | (unknown) | [facility] | (no | (units | (unknown) | | | | | MEDICAL | value) | unknown) | | | | | | [facility], | | | | | | | | [facility] | | | | + + + + +---------+ + + + + | Result panel 171 | + + + + + + +---------+ + + | (unknown) | (no date) | (unknown) | [facility] | (no | (units | (unknown) | | | | | MEDICAL | value) | unknown) | | | | | | [facility], | | | | | | | | [facility] | | | | + + + + +---------+ + + + + | Result panel 172 | + + + + + + +---------+ + + | (unknown) | (no date) | (unknown) | [facility] | (no | (units | (unknown) | | | | | MEDICAL | value) | unknown) | | | | | | [facility], | | | | | | | | [facility] | | | | + + + + +---------+ + + + + | Result panel 173 | + + + + + + +---------+ + + | (unknown) | (no date) | (unknown) | [facility] | (no | (units | (unknown) | | | | | MEDICAL | value) | unknown) | | | | | | [facility], | | | | | | | | [facility] | | | | + + + + +---------+ + + + + | Result panel 174 | + + + + + + +---------+ + + | (unknown) | (no date) | (unknown) | [facility] | (no | (units | (unknown) | | | | | MEDICAL | value) | unknown) | | | | | | [facility], | | | | | | | | [facility] | | | | + + + + +---------+ + + + + | Result panel 175 | + + + + + + +---------+ + + | (unknown) | (no date) | (unknown) | [facility] | (no | (units | (unknown) | | | | | MEDICAL | value) | unknown) | | | | | | [facility], | | | | | | | | [facility] | | | | + + + + +---------+ + + + + | Result panel 176 | + + + + + + +---------+ + + | (unknown) | (no date) | (unknown) | [facility] | (no | (units | (unknown) | | | | | MEDICAL | value) | unknown) | | | | | | [facility], | | | | | | | | [facility] | | | | + + + + +---------+ + + + + | Result panel 177 | + + + + + + +---------+ + + | (unknown) | (no date) | (unknown) | [facility] | (no | (units | (unknown) | | | | | MEDICAL | value) | unknown) | | | | | | [facility], | | | | | | | | [facility] | | | | + + + + +---------+ + + + + | Result panel 178 | + + + + + + +---------+ + + | (unknown) | (no date) | (unknown) | [facility] | (no | (units | (unknown) | | | | | MEDICAL | value) | unknown) | | | | | | [facility], | | | | | | | | [facility] | | | | + + + + +---------+ + + + + | Result panel 179 | + + + + + + +---------+ + + | (unknown) | (no date) | (unknown) | [facility] | (no | (units | (unknown) | | | | | MEDICAL | value) | unknown) | | | | | | [facility], | | | | | | | | [facility] | | | | + + + + +---------+ + + + + | Result panel 180 | + + + + + + +---------+ + + | (unknown) | (no date) | (unknown) | [facility] | (no | (units | (unknown) | | | | | MEDICAL | value) | unknown) | | | | | | [facility], | | | | | | | | [facility] | | | | + + + + +---------+ + + + + | Result panel 181 | + + + + + + +---------+ + + | (unknown) | (no date) | (unknown) | [facility] | (no | (units | (unknown) | | | | | MEDICAL | value) | unknown) | | | | | | [facility], | | | | | | | | [facility] | | | | + + + + +---------+ + + + + | Result panel 182 | + + + + + + +---------+ + + | (unknown) | (no date) | (unknown) | [facility] | (no | (units | (unknown) | | | | | MEDICAL | value) | unknown) | | | | | | GROUP, | | | | | | | | [facility] | | | | + + + + +---------+ + + + + | Result panel 183 | + + + + + + +---------+ + + | (unknown) | (no date) | (unknown) | [facility] | (no | (units | (unknown) | | | | | MEDICAL | value) | unknown) | | | | | | [facility], | | | | | | | | [facility] | | | | + + + + +---------+ + + + + | Result panel 184 | + + + + + + +---------+ + + | (unknown) | (no date) | (unknown) | [facility] | (no | (units | (unknown) | | | | | MEDICAL | value) | unknown) | | | | | | [facility], | | | | | | | | [facility] | | | | + + + + +---------+ + + + + | Result panel 185 | + + + + + + +---------+ + + | (unknown) | (no date) | (unknown) | [facility] | (no | (units | (unknown) | | | | | MEDICAL | value) | unknown) | | | | | | [facility], | | | | | | | | [facility] | | | | + + + + +---------+ + + + + | Result panel 186 | + + + + + + +---------+ + + | (unknown) | (no date) | (unknown) | [facility] | (no | (units | (unknown) | | | | | MEDICAL | value) | unknown) | | | | | | GROUP, | | | | | | | | [facility] | | | | + + + + +---------+ + + + + | Result panel 187 | + + + + + + +---------+ + + | (unknown) | (no date) | (unknown) | [facility] | (no | (units | (unknown) | | | | | MEDICAL | value) | unknown) | | | | | | [facility], | | | | | | | | [facility] | | | | + + + + +---------+ + + + + | Result panel 188 | + + + + + + +---------+ + + | (unknown) | (no date) | (unknown) | [facility] | (no | (units | (unknown) | | | | | MEDICAL | value) | unknown) | | | | | | [facility], | | | | | | | | [facility] | | | | + + + + +---------+ + + + + | Result panel 189 | + + + + + + +---------+ + + | (unknown) | (no date) | (unknown) | [facility] | (no | (units | (unknown) | | | | | MEDICAL | value) | unknown) | | | | | | [facility], | | | | | | | | [facility] | | | | + + + + +---------+ + + + + | Result panel 190 | + + + + + + +---------+ + + | (unknown) | (no date) | (unknown) | [facility] | (no | (units | (unknown) | | | | | MEDICAL | value) | unknown) | | | | | | [facility], | | | | | | | | [facility] | | | | + + + + +---------+ + + + + | Result panel 191 | + + + + + + +---------+ + + | (unknown) | (no date) | (unknown) | [facility] | (no | (units | (unknown) | | | | | MEDICAL | value) | unknown) | | | | | | [facility], | | | | | | | | [facility] | | | | + + + + +---------+ + + + + | Result panel 192 | + + + + + + +---------+ + + | (unknown) | (no date) | (unknown) | [facility] | (no | (units | (unknown) | | | | | MEDICAL | value) | unknown) | | | | | | [facility], | | | | | | | | [facility] | | | | + + + + +---------+ + + + + | Result panel 193 | + + + + + + +---------+ + + | (unknown) | (no date) | (unknown) | [facility] | (no | (units | (unknown) | | | | | MEDICAL | value) | unknown) | | | | | | [facility], | | | | | | | | [facility] | | | | + + + + +---------+ + + + + | Result panel 194 | + + + + + + +---------+ + + | (unknown) | (no date) | (unknown) | [facility] | (no | (units | (unknown) | | | | | MEDICAL | value) | unknown) | | | | | | [facility], | | | | | | | | [facility] | | | | + + + + +---------+ + + + + | Result panel 195 | + + + + + + +---------+ + + | (unknown) | (no date) | (unknown) | [facility] | (no | (units | (unknown) | | | | | MEDICAL | value) | unknown) | | | | | | [facility], | | | | | | | | [facility] | | | | + + + + +---------+ + + + + | Result panel 196 | + + + + + + +---------+ + + | (unknown) | (no date) | (unknown) | [facility] | (no | (units | (unknown) | | | | | MEDICAL | value) | unknown) | | | | | | [facility], | | | | | | | | [facility] | | | | + + + + +---------+ + + + + | Result panel 197 | + + + + + + +---------+ + + | (unknown) | (no date) | (unknown) | [facility] | (no | (units | (unknown) | | | | | MEDICAL | value) | unknown) | | | | | | [facility], | | | | | | | | [facility] | | | | + + + + +---------+ + + + + | Result panel 198 | + + + + + + +---------+ + + | (unknown) | (no date) | (unknown) | [facility] | (no | (units | (unknown) | | | | | MEDICAL | value) | unknown) | | | | | | [facility], | | | | | | | | [facility] | | | | + + + + +---------+ + + + + | Result panel 199 | + + + + + + +---------+ + + | (unknown) | (no date) | (unknown) | [facility] | (no | (units | (unknown) | | | | | MEDICAL | value) | unknown) | | | | | | [facility], | | | | | | | | [facility] | | | | + + + + +---------+ + + + + | Result panel 200 | + + + + + + +---------+ + + | (unknown) | (no date) | (unknown) | [facility] | (no | (units | (unknown) | | | | | MEDICAL | value) | unknown) | | | | | | [facility], | | | | | | | | [facility] | | | | + + + + +---------+ + + + + | Result panel 201 | + + + + + + +---------+ + + | (unknown) | (no date) | (unknown) | [facility] | (no | (units | (unknown) | | | | | MEDICAL | value) | unknown) | | | | | | [facility], | | | | | | | | [facility] | | | | + + + + +---------+ + + + + | Result panel 202 | + + + + + + +---------+ + + | (unknown) | (no date) | (unknown) | [facility] | (no | (units | (unknown) | | | | | MEDICAL | value) | unknown) | | | | | | [facility], | | | | | | | | [facility] | | | | + + + + +---------+ + + + + | Result panel 203 | + + + + + + +---------+ + + | (unknown) | (no date) | (unknown) | [facility] | (no | (units | (unknown) | | | | | MEDICAL | value) | unknown) | | | | | | [facility], | | | | | | | | [facility] | | | | + + + + +---------+ + + + + | Result panel 204 | + + + + + + +---------+ + + | (unknown) | (no date) | (unknown) | [facility] | (no | (units | (unknown) | | | | | MEDICAL | value) | unknown) | | | | | | [facility], | | | | | | | | [facility] | | | | + + + + +---------+ + + + + | Result panel 205 | + + + + + + +---------+ + + | (unknown) | (no date) | (unknown) | [facility] | (no | (units | (unknown) | | | | | [facility] | value) | unknown) | | | | | | [facility], | | | | | | | | [facility] | | | | + + + + +---------+ + + Social History + + + + | date | description | facility | + + + + | 2019-07-04 00:00 | Never smoked tobacco | [facility] | + + + + | 2020-09-05 00:00 | Unknown if ever smoked | [facility] | | | | | + + + + | 2020-09-05 00:00 | Smoker (finding) | [facility] | | | | | + + + + | 2021-10-23 00:00 | Unknown if ever smoked | [facility] | | | | | + + + + | 2021-10-23 00:00 | Smoker (finding) | [facility] | | | | | + + + + | 2021-12-18 00:00 | Unknown if ever smoked | [facility] | | | | | + + + + | 2021-12-18 00:00 | Smoker (finding) | [facility] | | | | | + + + + | 2022-01-20 00:00 | [facility] if ever smoked | [facility] | | | | | + + + + | 2022-01-20 00:00 | Smoker (finding) | [facility] | | | | | + + + + | 2022-11-26 00:00 | Unknown if ever smoked | [facility] | | | | | + + + + | 2022-11-26 00:00 | Smoker (finding) | [facility] | | | | | + + + + | 2022-12-22 00:00 | Unknown if ever smoked | [facility] | | | | | + + + + | 2022-12-22 00:00 | Smoker (finding) | [facility] | | | | | + + + + | 2023-01-20 00:00 | Unknown if ever smoked | [facility] | | | | | + + + + | 2023-01-20 00:00 | Smoker (finding) | [facility] | | | | | + + + + Vital Signs + + + + + | date | measurement | value | units | + + + + + | 2019-09-06 00:00 | BMI | 30.1 | kg/m2 | + + + + + | 2019-09-06 00:00 | BMI | 95 | {percentile} | + + + + + | 2019-09-06 00:00 | BP_diastolic | 60 | mmHg | + + + + + | 2019-09-06 00:00 | BP_systolic | 130 | mmHg | + + + + + | 2019-09-06 00:00 | BSA | 1.95 | m2 | + + + + + | 2019-09-06 00:00 | heart_rate | 1|1| | completed | + + + + + | 2019-09-06 00:00 | heart_rate | 60 | /min | + + + + + | 2019-09-06 00:00 | height_metric | 168.28 | cm | + + + + + | 2019-09-06 00:00 | height_standard | 66.25 | in | + + + + + | 2019-09-06 00:00 | o2_saturation | 98 | % | + + + + + | 2019-09-06 00:00 | temperature_metric | 36.5 | C | | | | | | + + + + + | 2019-09-06 00:00 | | 97.7 | F | | | temperature_standar | | | | | d | | | + + + + + | 2019-09-06 00:00 | weight_metric | 85.33 | kg | + + + + + | 2019-09-06 00:00 | weight_standard | 188.13 | lb | + + + + + | 2019-09-19 00:00 | BP_diastolic | 32 | mmHg | + + + + + | 2019-09-19 00:00 | BP_systolic | 130 | mmHg | + + + + + | 2019-09-19 00:00 | heart_rate | 1|1| | completed | + + + + + | 2019-09-19 00:00 | heart_rate | 60 | /min | + + + + + | 2019-09-19 00:00 | weight_metric | 85.28 | kg | + + + + + | 2019-09-19 00:00 | weight_standard | 188 | lb | + + + + + | 2019-09-22 00:00 | BMI | 30.8 | kg/m2 | + + + + + | 2019-09-22 00:00 | BMI | 96 | {percentile} | + + + + + | 2019-09-22 00:00 | BP_diastolic | 80 | mmHg | + + + + + | 2019-09-22 00:00 | BP_systolic | 128 | mmHg | + + + + + | 2019-09-22 00:00 | BSA | 1.94 | m2 | + + + + + | 2019-09-22 00:00 | heart_rate | 66 | /min | + + + + + | 2019-09-22 00:00 | height_metric | 166.37 | cm | + + + + + | 2019-09-22 00:00 | height_standard | 65.5 | in | + + + + + | 2019-09-22 00:00 | o2_saturation | 98 | % | + + + + + | 2019-09-22 00:00 | weight_metric | 85.39 | kg | + + + + + | 2019-09-22 00:00 | weight_standard | 188.25 | lb | + + + + + | 2019-11-07 00:00 | BMI | 28.8 | kg/m2 | + + + + + | 2019-11-07 00:00 | BMI | 93 | {percentile} | + + + + + | 2019-11-07 00:00 | BSA | 1.88 | m2 | + + + + + | 2019-11-07 00:00 | heart_rate | 1|1| | completed | + + + + + | 2019-11-07 00:00 | heart_rate | 72 | /min | + + + + + | 2019-11-07 00:00 | height_metric | 166.37 | cm | + + + + + | 2019-11-07 00:00 | height_standard | 65.5 | in | + + + + + | 2019-11-07 00:00 | temperature_metric | 36.67 | C | | | | | | + + + + + | 2019-11-07 00:00 | | 98 | F | | | temperature_standar | | | | | d | | | + + + + + | 2019-11-07 00:00 | weight_metric | 79.74 | kg | + + + + + | 2019-11-07 00:00 | weight_standard | 175.8 | lb | + + + + + | 2019-11-16 00:00 | heart_rate | 1|1| | completed | + + + + + | 2019-11-16 00:00 | heart_rate | 72 | /min | + + + + + | 2019-11-16 00:00 | weight_metric | 77.56 | kg | + + + + + | 2019-11-16 00:00 | weight_standard | 171 | lb | + + + + + | 2020-09-05 00:00 | BP_diastolic | 62 | mmHg | + + + + + | 2020-09-05 00:00 | BP_systolic | 110 | mmHg | + + + + + | 2020-09-05 00:00 | heart_rate | 1|1| | completed | + + + + + | 2020-09-05 00:00 | heart_rate | 99 | /min | + + + + + | 2020-09-05 00:00 | temperature_metric | 36.89 | C | | | | | | + + + + + | 2020-09-05 00:00 | | 98.4 | F | | | temperature_standar | | | | | d | | | + + + + + | 2020-09-05 00:00 | weight_metric | 68.04 | kg | + + + + + | 2020-09-05 00:00 | weight_standard | 150 | lb | + + + + + | 2020-12-10 00:00 | weight_metric | 61.23 | kg | + + + + + | 2020-12-10 00:00 | weight_standard | 135 | lb | + + + + + | 2020-12-19 00:00 | BMI | 24.2 | kg/m2 | + + + + + | 2020-12-19 00:00 | BMI | 77 | {percentile} | + + + + + | 2020-12-19 00:00 | BSA | 1.77 | m2 | + + + + + | 2020-12-19 00:00 | height_metric | 167.64 | cm | + + + + + | 2020-12-19 00:00 | height_standard | 66 | in | + + + + + | 2020-12-19 00:00 | temperature_metric | 36.67 | C | | | | | | + + + + + | 2020-12-19 00:00 | | 98 | F | | | temperature_standar | | | | | d | | | + + + + + | 2020-12-19 00:00 | weight_metric | 68.04 | kg | + + + + + | 2020-12-19 00:00 | weight_standard | 150 | lb | + + + + + | 2021-01-28 00:00 | BMI | 22.7 | kg/m2 | + + + + + | 2021-01-28 00:00 | BMI | 64 | {percentile} | + + + + + | 2021-01-28 00:00 | BP_diastolic | 80 | mmHg | + + + + + | 2021-01-28 00:00 | BP_systolic | 132 | mmHg | + + + + + | 2021-01-28 00:00 | BSA | 1.73 | m2 | + + + + + | 2021-01-28 00:00 | heart_rate | 1|1| | completed | + + + + + | 2021-01-28 00:00 | heart_rate | 68 | /min | + + + + + | 2021-01-28 00:00 | height_metric | 168.28 | cm | + + + + + | 2021-01-28 00:00 | height_standard | 66.25 | in | + + + + + | 2021-01-28 00:00 | o2_saturation | 100 | % | + + + + + | 2021-01-28 00:00 | temperature_metric | 36.17 | C | | | | | | + + + + + | 2021-01-28 00:00 | | 97.1 | F | | | temperature_standar | | | | | d | | | + + + + + | 2021-01-28 00:00 | weight_metric | 64.41 | kg | + + + + + | 2021-01-28 00:00 | weight_standard | 142 | lb | + + + + + | 2021-10-23 00:00 | BP_diastolic | 80 | mmHg | + + + + + | 2021-10-23 00:00 | BP_systolic | 128 | mmHg | + + + + + | 2021-10-23 00:00 | heart_rate | 88 | /min | + + + + + | 2021-10-23 00:00 | weight_metric | 68.95 | kg | + + + + + | 2021-10-23 00:00 | weight_standard | 152 | lb | + + + + + | 2021-12-18 00:00 | BP_diastolic | 76 | mmHg | + + + + + | 2021-12-18 00:00 | BP_systolic | 122 | mmHg | + + + + + | 2021-12-18 00:00 | heart_rate | 64 | /min | + + + + + | 2021-12-18 00:00 | weight_metric | 66.68 | kg | + + + + + | 2021-12-18 00:00 | weight_standard | 147 | lb | + + + + + | 2022-01-20 00:00 | BP_diastolic | 68 | mmHg | + + + + + | 2022-01-20 00:00 | BP_systolic | 118 | mmHg | + + + + + | 2022-01-20 00:00 | heart_rate | 64 | /min | + + + + + | 2022-01-20 00:00 | weight_metric | 69.85 | kg | + + + + + | 2022-01-20 00:00 | weight_standard | 154 | lb | + + + + + | 2022-11-25 00:00 | BMI | 28.1 | 1 | + + + + + | 2022-11-25 00:00 | BMI | 89.9 | % | + + + + + | 2022-11-25 00:00 | BP_diastolic | 86 | mmHg | + + + + + | 2022-11-25 00:00 | BP_systolic | 130 | mmHg | + + + + + | 2022-11-25 00:00 | BSA | 1.9 | 1 | + + + + + | 2022-11-25 00:00 | heart_rate | 1|1| | completed | + + + + + | 2022-11-25 00:00 | heart_rate | 90 | /min | + + + + + | 2022-11-25 00:00 | height_metric | 167.64 | cm | + + + + + | 2022-11-25 00:00 | height_standard | 66 | in | + + + + + | 2022-11-25 00:00 | o2_saturation | 98 | % | + + + + + | 2022-11-25 00:00 | temperature_metric | 36.72 | C | | | | | | + + + + + | 2022-11-25 00:00 | | 98.1 | F | | | temperature_standar | | | | | d | | | + + + + + | 2022-11-25 00:00 | weight_metric | 78.98 | kg | + + + + + | 2022-11-25 00:00 | weight_standard | 174.13 | lb | + + + + + | 2022-12-19 00:00 | BMI | 28.2 | 1 | + + + + + | 2022-12-19 00:00 | BMI | 90.1 | % | + + + + + | 2022-12-19 00:00 | BP_diastolic | 70 | mmHg | + + + + + | 2022-12-19 00:00 | BP_systolic | 118 | mmHg | + + + + + | 2022-12-19 00:00 | BSA | 1.9 | 1 | + + + + + | 2022-12-19 00:00 | heart_rate | 1|1| | completed | + + + + + | 2022-12-19 00:00 | heart_rate | 79 | /min | + + + + + | 2022-12-19 00:00 | height_metric | 167.64 | cm | + + + + + | 2022-12-19 00:00 | height_standard | 66 | in | + + + + + | 2022-12-19 00:00 | o2_saturation | 99 | % | + + + + + | 2022-12-19 00:00 | temperature_metric | 36.5 | C | | | | | | + + + + + | 2022-12-19 00:00 | | 97.7 | F | | | temperature_standar | | | | | d | | | + + + + + | 2022-12-19 00:00 | weight_metric | 79.38 | kg | + + + + + | 2022-12-19 00:00 | weight_standard | 175 | lb | + + + + + | 2023-01-20 00:00 | BMI | 28 | 1 | + + + + + | 2023-01-20 00:00 | BMI | 89.5 | % | + + + + + | 2023-01-20 00:00 | BP_diastolic | 80 | mmHg | + + + + + | 2023-01-20 00:00 | BP_systolic | 130 | mmHg | + + + + + | 2023-01-20 00:00 | BSA | 1.9 | 1 | + + + + + | 2023-01-20 00:00 | heart_rate | 1|1| | completed | + + + + + | 2023-01-20 00:00 | heart_rate | 76 | /min | + + + + + | 2023-01-20 00:00 | height_metric | 168.91 | cm | + + + + + | 2023-01-20 00:00 | height_standard | 66.5 | in | + + + + + | 2023-01-20 00:00 | o2_saturation | 99 | % | + + + + + | 2023-01-20 00:00 | temperature_metric | 36.5 | C | | | | | | + + + + + | 2023-01-20 00:00 | | 97.7 | F | | | temperature_standar | | | | | d | | | + + + + + | 2023-01-20 00:00 | weight_metric | 79.89 | kg | + + + + + | 2023-01-20 00:00 | weight_standard | 176.13 | lb | + + + + +"
--- OUTSIDE RECORDS SUMMARY | ~2023-02-12 | XMS | Continuity of Care Document ---
Demographics + + + | Address | [address] | | | [place] [address] | + + + | Preferred Language | Unknown | + + + | Marital Status | Never | + + + | Cheondoism Affiliation | Unknown | + + + | Race | White | + + + | Ethnic Group | Not or | + + + Author + + + | Author | [facility] | + + + | Organization | [facility] | + + + | Address | [address] | | | [place] [address] | + + + | Phone | | + + + Care Team Providers + + + + | Care Garbage Stoker Name | Role | Phone | + [...] 2019-09-06 00:00 | 1 ML medroxyprogesterone | [facility] | | | acetate 150 MG/ML Injection | | | | [Depo-Provera] | | + + + + | 2019-09-06 00:00 | 1 ML medroxyprogesterone | [facility] | | | acetate [...] 00:00 | Multi Vitamin Oral Tablet | [facility] | | | | | + + + + | 2020-12-10 00:00 | ProAir HFA 108 (90 Base) | [facility] | | | MCG/ACT Inhalation Aerosol | | | | Solution | | + + + + | 2020-12-10 00:00 | ProAir HFA 108 (90 Base) | [facility] | | | MCG/ACT Inhalation Aerosol | | | | Solution | | + + + + | 2019-11-02 00:00 | {21 (ethinyl estradiol | [facility] | | | 0.035 MG / norgestimate | | | | 0.25 MG Oral Tablet) / 7 | | | | (inert ingredients 1 MG | | | | Oral Tablet) } Pack | | | | [[place] 28 Day] | | + + + + | 2019-11-02 00:00 | {21 (ethinyl estradiol | [facility] | | | 0.035 MG / norgestimate | | | | 0.25 MG Oral Tablet) / 7 | | | | (inert ingredients 1 MG | | | | Oral Tablet) } Pack | | | | [[place] 28 Day] | | + + + + | 2019-12-06 00:00 | {21 (ethinyl estradiol | [facility] | | | 0.035 MG / norgestimate | | | | 0.25 MG Oral Tablet) / 7 | | | | (inert ingredients 1 MG | | | | Oral Tablet) } Pack | | | | [[place] 28 Day] | | + + + + | 2019-12-06 00:00 | {21 (ethinyl estradiol | [facility] | | | 0.035 MG / norgestimate | | | | 0.25 MG Oral Tablet) / 7 | | | | (inert ingredients 1 MG | | | | Oral Tablet) } Pack | | | | [[place] 28 Day] | | + + + + | 2019-11-02 00:00 | [place] 0.25-35 MG-MCG | [facility] | | | Oral Tablet | | + + + + | 2019-11-02 00:00 | [place] 0.25-35 MG-MCG | [facility] | | | Oral Tablet | | + + + + | 2019-12-06 00:00 | [place] 0.25-35 MG-MCG | [facility] | | | Oral Tablet | | + + + + | 2019-12-06 00:00 | [place] 0.25-35 MG-MCG | [facility] | | | Oral [...] | Propranolol HCl 20 MG Oral | [facility] | | | Tablet | | + + + + | 2022-11-25 00:00 | Propranolol HCl 20 MG Oral | [facility] | | | Tablet | | + + + + | 2019-07-04 00:00 | ibuprofen 400 mg oral | [facility] | | | tablet | Cardiopulmonary | + + + + | 2020-12-10 00:00 | [id number] 200 actuat | [facility] Brandonerd | | [...] FLUoxetine HCl 20 MG Oral | [facility] | | | Tablet | | + + + + | 2019-11-07 00:00 | FLUoxetine HCl 20 MG Oral | [facility] | | | Tablet | | + + + + | 2019-11-16 00:00 | Sertraline HCl 25 MG Oral | [facility] | | | Tablet | | + + + + | 2019-11-16 00:00 | Sertraline HCl 25 MG Oral | [facility] | | | Tablet | | + + + + | 2020-09-05 00:00 | Effexor XR 37.5 MG Oral | [facility] | | | Capsule Extended [...] 00:00 | duloxetine 30 MG Delayed | [facility] | | | Release Oral Capsule | | | | [Cymbalta] | | + + + + | 2022-01-20 00:00 | duloxetine 30 MG Delayed | [facility] | | | Release [...] | 24 HR venlafaxine 37.5 MG | [facility] | | | Extended Release Oral | | | | Capsule [Effexor] | | + + + + | 2020-12-10 00:00 | [id number] 200 ACTUAT | [facility] | | | albuterol 0.09 MG/ACTUAT | | | | Metered Dose Inhaler | | | | [ProAir] | | + + + + | 2020-12-10 00:00 | [id number] 200 ACTUAT | [facility] | | | albuterol [...] 00:00 | Sprintec 28 0.25-35 MG-MCG | [facility] | | | Oral Tablet | | + + + + | 2019-10-05 00:00 | Sprintec 28 0.25-35 MG-MCG | [facility] | | | Oral Tablet | | + + + + | 2022-12-19 00:00 | propranolol hydrochloride | [facility] | | | 10 MG Oral Tablet | | + + + + | 2022-12-19 00:00 | propranolol hydrochloride | [facility] | | | 10 MG Oral Tablet | | + + + + | 2022-11-25 00:00 | propranolol hydrochloride | [facility] | | | 20 MG Oral Tablet | | + + + + | 2022-11-25 00:00 | propranolol hydrochloride | [facility] | | | 20 MG Oral Tablet [...] 00:00 | Cymbalta 30 MG Oral | [facility] | | | Capsule Delayed Release | | | | Particles | | + + + + | 2019-09-06 00:00 | Calcium Oral Tablet | [facility] | | | | | + + + + | 2019-09-06 00:00 | Calcium Oral Tablet | [facility] | | | | | + + + + Problems + + + + | date | description | facility | + + + + | 2020-09-05 00:00 | Generalized anxiety | [facility]. | | | disorder (disorder) [...] | 2020-09-05 00:00 | ANXIETY GENERALIZED | [facility] | | | | | + + + + | 2020-09-05 00:00 | ANXIETY GENERALIZED | [facility]. | | | | | + + + + | 2020-09-05 00:00 | Scoliosis | [facility]. | | | | | + + + + | 2020-09-05 00:00 | Scoliosis | [facility] | | | | | + + + + | 2020-09-05 00:00 | Generalized Anxiety | [facility] | | | Disorder | | + + + + | 2020-09-05 00:00 | Generalized Anxiety | [facility] | | | Disorder | [...] 2022-11-25 00:00 | Controlling BP; Most | [facility] | | | recent Diastolic BP btwn | | | | 80-89 mm Hg | | + + + + | 2022-11-25 00:00 | Controlling BP; Most | [facility] | | | recent Diastolic BP btwn | | | | 80-89 mm Hg | | + + + + | 2022-11-25 00:00 | ECG; Routine at Least 12 | [facility] | | | Leads; Interpretation & | | | | Report | | + + + + | 2022-11-25 00:00 | ECG; Routine at Least 12 | [facility] | | | Leads; Interpretation & | | | | Report | | + + + + | 2021-11-05 00:00 | CARDIAC 48 HOUR HOLTER | [facility] | | | MONITOR W SCAN | Cardiopulmonary | + + + + | 2022-11-25 00:00 | Annual Depression | [facility] | | | Screening; 15 Minutes | | + + + + | 2022-11-25 00:00 | Annual Depression | [facility] | | | Screening; 15 [...] 00:00 | Unknown if ever smoked | [facility] | | | | | + + + + | 2022-01-20 00:00 | Smoker (finding) | [facility]. | | | | | + + + + | 2022-11-26 00:00 | Unknown if ever smoked | [facility] | | | | | + + + + | 2022-11-26 00:00 | Smoker (finding) | [facility] | | | | | + + + + | 2022-12-22 00:00 | Unknown if ever smoked | [facility] | | | | | + + + + | 2022-12-22 00:00 | Smoker (finding) | [facility] | | | | | + + + + | 2023-01-20 00:00 | Unknown if ever smoked | [facility] | | | | | + + + + | 2023-01-20 00:00 | Smoker (finding) | [facility] | | | | | [...]
[~2023-02-12 09:06] MED LIST changes: +NEXPLANON68 MG SUB-Q; +PROPRANOLOL HCL20 MG PO
[2023-02-12 09:48] VITALS: BP 133/92
== END 2023-02-12 09:58 | disposition home or self-care (01) ==
LOC: ED 09:06
DX: I47.1 Supraventricular tachycardia (principal); Z79.899 Other long term (current) drug therapy
CPT/HCPCS: 99284